=== PATIENT | male | born 1985 | race Caucasian/White ===

== ENCOUNTER 2020-10-23 04:30 | Emergency (ER) | payer MEDICAID, SELFPAY ==
[2020-10-23] VITALS (9 sets, daily range): BP systolic 115–200; BP diastolic 61–85; PULSE 58–91; RESP 13–18; TEMP 36.6–37.2; O2SAT 96–99; BMI 25.1
--- NOTE | 2020-10-23 05:36 | ED_ITS ---
HPI - Anxiety General Chief Complaint: Anxiety Stated Complaint: psych eval Time Seen by Provider: 10/23/20 05:36 Source: patient Mode of arrival: EMS History of Present Illness HPI narrative: This is a 35-year-old male who is brought in by EMS after he was found by the police at [facility] crying. As per patient he states that he found his brother on Saturday after his brother had overdosed on drugs. Since that time patient states he has tried to ?get over it? but has been unable to eat, sleep and states he has been walking around the city crying. Patient denies SI/HI, but states his anxiety has been progressively increasing and he admits he drank alcohol yesterday, 2 shots, but denies any other substance use. He is on the methadone program. Patient is requesting to speak with someone. Related Data Allergies Allergy/AdvReac Type Severity Reaction Status Date / Time Cephalosporins Allergy Anaphylaxis Verified 10/23/20 04:43 Review of Systems Review of Systems: Pertinent positives and negatives as stated in HPI 10 point review of systems is otherwise negative. PMFSH Past Medical History Source: nursing notes reviewed Medical History C5 cervical fracture Femur fracture, left Femur fracture, right Fracture, sternum closed Opiate addiction Social History Social History Advance Directives: No Advance Directives Information Provided: No Physical Exam Vital Signs: Vital Signs: Last Vital Signs Temp 98.9 F 10/23/20 04:36 Pulse 74 10/23/20 06:05 Resp 16 10/23/20 06:05 BP 115/62 10/23/20 06:05 Pulse Ox 96 10/23/20 06:05 Body Mass Index 25.1 VITAL SIGNS: Reviewed. GENERAL: Well developed, well nourished, moderate distress. HEAD: Normocephalic/atraumatic EYES: PERRLA, EOMI OROPHARYNX: no oral lesions noted, posterior pharynx clear NECK: Supple, no adenopathy LUNGS: Normal breath sounds. No adventitious sounds or accessory muscle use. SpO2<96> CARDIOVASCULAR: Regular rate and rhythm without noted murmurs ABDOMEN: Soft, non-tender, non-distended with bowel sounds. NEUROLOGIC: Alert and oriented x 4. Strength and sensation to light touch were grossly intact x 4. PSYCH: Anxious, tearful, depressive affect Course Course Course Narrative: This is a 35-year-old male with history and clinical presentation consistent with significant loss and development of progressive worsening of anxiety and grieving. With hydroxyzine 50 mg. Although he is not suicidal he is requesting this be with someone from crisis. He is otherwise medically cleared for evaluation by the behavioral team. Signed out to Dr Zavala. MDM - Anxiety Lab Data Labs: Lab Results 10/23/20 10/23/20 10/23/20 Range/Units 05:44 05:45 05:45 POC Glucose 113 (60-115) mg/dL Urine Color YELLOW Urine Appearance CLEAR Urine pH 6.0 (5.0-8.0) Ur Specific [place] >= 1.030 H (1.005-1.025) Urine Protein NEG (NEG-TRACE) MG/DL Urine Glucose (UA) NEG (NEG) MG/DL Urine Ketones NEG (NEG) MG/DL Urine Blood NEG (NEG) Urine Nitrite NEG (NEG) Ur Leukocyte Esterase NEG (NEG) Urine Opiates Screen POSITIVE H (Not Detect) Ur Barbiturates Screen Not Detected (Not Detect) Ur Phencyclidine Scrn Not Detected (Not Detect) Ur Amphetamines Screen Not Detected (Not Detect) U Benzodiazepines Scrn Not Detected (Not Detect) Urine Cocaine Screen Not Detected (Not Detect) U Marijuana (THC) Screen POSITIVE H (Not Detect)
--- NOTE | 2020-10-23 05:36 | PC.NURSE ---
MD at bedside for primary eval. Plan for Hydroxyzine and BHN consult. Pt ambulating to the bathroom to provide urine sample.
[2020-10-23 05:47] LABS: Glucose, Whole Blood 113 mg/dL (60-115)
[2020-10-23] MEDS: hydrOXYzine HCL 50 MG TABLET PO (05:56)
--- NOTE | 2020-10-23 06:00 | PC.NURSE ---
Pt medicated per JUL. Resting in bed at this time.
[2020-10-23 06:04] LABS: Glucose Urine UA NEG (NEG); Leukocyte Esterase Urine NEG (NEG); Nitrite Urine NEG (NEG); Specific Gravity - Urine >= 1.030 (1.005-1.025); Urine Blood NEG (NEG); Urine Ketones NEG (NEG); Urine Protein NEG (NEG-TRACE)
[2020-10-23 06:13] LABS: Appearance Urine CLEAR; Color Urine YELLOW
[2020-10-23 06:29] LABS: Amphetamine Screen Urine Not Detected (Not Detect); Barbiturates, Urine Not Detected (Not Detect); Benzodiazepines Screen Urine Not Detected (Not Detect); Cannabinoid Screen Urine POSITIVE (Not Detect); Cocaine Screen Urine Not Detected (Not Detect); Opiate Screen Urine POSITIVE (Not Detect); Phencyclidine Screen Urine Not Detected (Not Detect)
[2020-10-23 08:29] LABS: COVID-19 Test Negative (Negative)
--- NOTE | 2020-10-23 10:40 | PC.NURSE ---
Pt alseep at this time, will reach to CARE team for assessment.
--- NOTE | 2020-10-23 14:05 | MHC.CARE ---
CARE Team met with patient in ED 14, he had presented last night with severe anxiety, unable to sleep or stop crying since the of his brother last week. Patient explained that he recently moved here from [place] with his girlfriend and their 4 year-old daughter, is not established with providers in this area, feels overwhelmed and unable to follow through. Dropped and broke his new phone last night, is worried that family will be worried about him being out of touch. CARE Team lent him [facility] Iphone to reach out to family and get phone numbers. Has a history of opiate addiction, said he is stable on Methadone and denied any recent drug use. Patient is in need of outpatient therapy referrals, a PCP, he is interested in PHP and increasing his supports in the area, was given information about [facility] and PHP, team can arrange outpatient services through [facility]. was also provided with CARE Team and Crisis contact information.
--- NOTE | 2020-10-23 14:12 | PC.NURSE ---
CARE team in with room and gave pt phone to make calls for services. CARE team to refer to counseling services SARAH Castro
--- NOTE | 2020-10-23 14:41 | PC.NURSE ---
Aly (family coach) at bedside
--- NOTE | 2020-10-23 15:33 | MHC.RECOVSUP ---
Recovery Support note: ED Staff requested this flex o writer operator to meet with patient to assist in getting phone numbers off the CARE Team phone. Patient was previously taking photos using the phone and sending them to a contact. Messages and photos were deleted and patient obtained the numbers he needed. CARE Team phone was replaced with the ED cordless phone. Patient reports anxiety regarding his methadone dose. Patient reports he has a take home dose and he is trying to get in contact with the person who has his belongings. This flex o writer operator reached out to [employer] on [facility] for dose verification and left a message. Discussed case with CARE Team.
[2020-10-23] MEDS: cloNIDine HCL 0.2 MG TABLET PO (18:09)
[2020-10-23] MEDS: LORazepam 1 MG TABLET 2 MG PO (18:09)
--- NOTE | 2020-10-23 20:22 | MHC.RECOVSUP ---
? Reason for consult Recovery Support o Current location: ED18H o Identified substance use concern: Heroin - Support ? Intervention: <del>o</del> <del>ATS</del> <del>bed</del> <del>search</del> <del>started/completed/in</del> <del>process</del> <del>o</del> <del>MAT</del> <del>started</del> <del>or</del> <del>to</del> <del>be</del> <del>started</del> <del>o</del> <del>Community</del> <del>resources</del> <del>provided</del> <del>o</del> <del>Harm</del> <del>reduction</del> <del>discussion</del> ? Plan: <del>o</del> <del>Referral</del> <del>to</del> <del>[facility]</del> <del>o</del> <del>Bed</del> <del>search</del> <del>in</del> <del>progress</del> <del>to</del> <del>o</del> <del>Follow</del> <del>up</del> <del>tomorrow</del> <del>o</del> <del>Patient</del> <del>awaiting</del> <del>crisis</del> <del>evaluation</del> o Patient to follow up with H after discharge ? Additional information: Follow up with Patient.. Patient attempted to call His Friend that is holding his MAT (Methadone dose) but had no Thayer.. Patient is going to be moved to the POD until Patient can try again in the Morning..
[2020-10-23] MEDS: cloNIDine HCL 0.1 MG TABLET PO (22:32)
--- NOTE | 2020-10-23 22:35 | PC.NURSE ---
Patient scored 6 on COW, provider notified/ordered Clonidine 0.1 mg/administered as ordered/pending effect. will continue to monitor.
--- NOTE | 2020-10-24 04:08 | PC.NURSE ---
N called/spoke with [facility] to confirm receipt of referrals, however N reported that they have not received no referral for the patient. N faxed referral/called and spoke with [facility] again/confirmed receipt of referral, patient will be seen in the morning.
[2020-10-24 04:13] VITALS: BP 100/46; PULSE 53; RESP 16; TEMP 36.2; O2SAT 97
--- NOTE | 2020-10-24 05:44 | PC.NURSE ---
[employer] called at [phone], spoke with Kristen MOREIRA who verified patient's Methadone dosing, patient takes 115 mg daily got dispensed 7 days supply of Methadone as a take away home until October 09 2020 on October 22, 2020. Med rec updated, in house pharmacy faxed, provider notified, pending JUL update.
--- NOTE | 2020-10-24 07:06 | PC.NURSE ---
patient appears to remain at rest this morning appears in no distress, breathing even and unlabored.
--- NOTE | 2020-10-24 09:21 | MHC.RECOVSUP ---
Recovery Support note: This chief underwriter checked in with patient to see how he is doing shortly after receiving his methadone dose. Patient reports some improvement in withdrawal however reports his legs are locked up from shaking all night. Patient reports he hasn't been able to eat or think straight for several days due to his anxiety and depression and that he is interested in speaking with N crisis. This chief underwriter informed patient's RN that patient is interested in remaining in the ED for a crisis assessment.
[2020-10-24 11:09] VITALS: BP 139/67; PULSE 72; RESP 18; TEMP 36.6; O2SAT 98
[2020-10-24] MEDS: Nicotine Polacrilex 2 MG GUM BUCCAL (15:38)
--- NOTE | 2020-10-24 17:17 | MHC.RECOVSUP ---
Recovery Support note: Patient was able to get in touch with a friend who was willing to pick him up and transport him to the person who had his belongings, including his methadone. Patient reports no SI/HI at this time and plans to follow up with the resources provided by the CARE Team. Patient reports no questions at this time. Patient belongings were returned and patient was escorted to the front of the hospital where he was picked up by his friend.
== END 2020-10-24 15:58 | disposition home or self-care (01) ==
PROVIDERS: Emergency Provider Student in an Organized Health Care Education/Training Program; PCP Family Medicine
DX: F43.22 Adjustment disorder with anxiety (principal); F11.20 Opioid dependence, uncomplicated; Z20.822 Contact with and (suspected) exposure to COVID-19
CPT/HCPCS: 36415; 80307; 81003; 82947; 87635; 99284; 99285